=== PATIENT | male | born 1995 | race African-American/Black ===

== ENCOUNTER 2024-08-03 13:45 | Emergency (ER) | payer MEDICAID, OTHER ==
[~2024-08-03] VITALS: Ht 190.5 cm; Wt 90.7 kg
[2024-08-03 14:15] VITALS: BP 110/73; TEMP 98.2
[2024-08-03 16:03] VITALS: O2SAT 99
== END 2024-08-03 16:03 | disposition home or self-care (01) ==
LOC: ER 14:24
DX: M25.461 Effusion, right knee (principal); R26.2 Difficulty in walking, not elsewhere classified; J45.909 Unspecified asthma, uncomplicated; Z60.2 Problems related to living alone; X58.XXXA Exposure to other specified factors, initial encounter; Y93.67 Activity, basketball; Y92.89 Other specified places as the place of occurrence of the external cause; Y99.8 Other external cause status
CPT/HCPCS: 73564-TC